=== PATIENT | male | born 1970 | race African-American/Black ===

== ENCOUNTER 2023-04-30 22:29 | Emergency (ER) | payer OTHER ==
[~2023-04-30] VITALS: Ht 165.1 cm; Wt 34.5 kg
[2023-04-30 23:19] LABS: PLATELET COUNT 245 K/uL (142-355)
[2023-04-30 23:34] LABS: POTASSIUM 3.5 mmol/L (3.6-5.2)
[2023-05-01 01:47] VITALS: BP 126/82; TEMP 98.3
== END 2023-05-01 01:47 | disposition home or self-care (01) ==
LOC: ED 22:29
PROVIDERS: Family Medicine
DX: R10.11 Right upper quadrant pain (principal); K80.20 Calculus of gallbladder without cholecystitis without obstruction
CPT/HCPCS: 36415; 80053; 81002; 82150; 83690; 85027; 96374; 96375; 99284; J1885; J2405